=== PATIENT | female | born 2000 | race African-American/Black ===

== ENCOUNTER 2021-02-22 09:12 | Emergency (ER) | payer BC ==
[~2021-02-22] VITALS: Ht 162.6 cm; Wt 71.5 kg
[2021-02-22 09:13] VITALS: BP 122/84
[2021-02-22] MEDS ORDERED: ONDANSETRON 4 MG ORAL DISINTEGRATING TAB PO ONE (11:30)
[2021-02-22] MEDS ORDERED: ONDA4TAB6 PO (11:53)
[2021-02-22] MEDS ORDERED: BENZ200C70 PO (11:53)
[2021-02-22] MEDS ORDERED: PROM25TA12 PO (13:21)
== END 2021-02-22 13:28 | disposition home or self-care (01) ==
LOC: M ED 09:12
DX: J06.9 Acute upper respiratory infection, unspecified (principal); Z88.0 Allergy status to penicillin; F17.210 Nicotine dependence, cigarettes, uncomplicated
CPT/HCPCS: 87804; 87880; 99284; Q0162; U0003